=== PATIENT | female | born 1930 | race Caucasian/White ===

== ENCOUNTER 2018-09-24 19:15 | Emergency (ER) | payer MEDICARE, OTHER ==
--- NOTE | 2018-09-24 19:24 | EDM.PDOC ---
ED HPI GENERAL MEDICAL PROBLEM - General Chief Complaint: Head Injury Stated Complaint: FALL Time Seen by Provider: 09/24/18 19:19 Source of Information: Reports: Patient, Family, RN, RN Notes Reviewed History Limitations: Reports: No Limitations - History of Present Illness INITIAL COMMENTS - FREE TEXT/NARRATIVE: Patient is brought to the ED at [facility] for the evaluation of a head injury. The patient states she was walking up cement steps when she lost her balance, falling backward hitting her head on the cement. She denies any LOC. Patient denies any visual field disturbances. She denies any neck or back pain. Patient states she remembers the entire fall. Fall was witnessed by her son. Onset: Today, Sudden Onset Date: 09/24/18 Posterior Head Pain Score (Numeric/FACES): 8 - Related Data Allergies Allergy/AdvReac Type Severity Reaction Status Date / Time acetaminophen Allergy Dizziness Verified 06/04/18 08:42 [From Coricidin] amoxicillin [From Augmentin] Allergy Diarrhea Verified 06/04/18 08:42 chlorpheniramine Allergy Dizziness Verified 06/04/18 08:42 [From Coricidin] clavulanic acid Allergy Diarrhea Verified 06/04/18 08:42 [From Augmentin] phenylpropanolamine Allergy Dizziness Verified 06/04/18 08:42 [From Coricidin] Home Meds: Home Meds Aspirin 325 mg PO DAILY 06/04/18 [History] Calcium Carbonate/Vitamin D3 [Calcium Carbonate/Vitamin D 600 MG-200 Unit] 1 tab PO BID 06/04/18 [History] Docusate Sodium [Colace] 200 mg PO BEDTIME 06/04/18 [History] Enalapril Maleate [Vasotec] 10 mg PO DAILY 06/04/18 [History] Fluticasone Propionate [Flonase] 16 gm NS BID 06/04/18 [History] Levothyroxine 75 mcg PO ACBREAKFAST 06/04/18 [History] Methylcellulose (with Sugar) [Citrucel] 0.3 tbsp PO DAILY 06/04/18 [History] Multivitamin [Multivitamins] 1 each PO DAILY 06/04/18 [History] Raloxifene [Evista] 60 mg PO DAILY 06/04/18 [History] Simvastatin [Zocor] 20 mg PO BEDTIME 06/04/18 [History] hydroCHLOROthiazide [Hydrochlorothiazide] 25 mg PO DAILY 06/04/18 [History] Past Medical History HEENT History: Reports: Cataract Cardiovascular History: Reports: CAD, High Cholesterol, Hypertension Gastrointestinal History: Reports: Chronic Constipation, Diverticulosis Musculoskeletal History: Reports: Osteoporosis Endocrine/Metabolic History: Reports: Hypothyroidism - Past Surgical History GI Surgical History: Reports: Appendectomy ED ROS GENERAL - Review of Systems Review Of Systems: See Below Constitutional: Denies: Fever, Chills HEENT: Denies: Ear Pain, Vision Change Respiratory: Denies: Shortness of Breath, Cough Cardiovascular: Denies: Chest Pain, Palpitations Musculoskeletal: Denies: Neck Pain, Back Pain Skin: Reports: Other (hematoma on posterior occipital scalp) Neurological: Denies: Confusion, Dizziness, Headache ED EXAM, HEAD INJURY - Physical Exam Exam: See Below Exam Limited By: No Limitations General Appearance: Alert, No Apparent Distress Head: Scalp Hematoma (posterior occipital scalp) Nexus Criteria: No: Posterior, Midline Cervical Tenderness, Altered Level of Consciousness, Focal Neurological Deficit Eyes: Bilateral Eye: EOMI, Normal Inspection, PERRL Ears: Normal External Exam, Normal TMs Nose: Normal Inspection Throat/Mouth: Normal Inspection, Normal Oropharynx, No Airway Compromise Neck: Non-Tender, Full Range of Motion, Normal Alignment, Normal Inspection Respiratory: No Respiratory Distress, Lungs Clear, Normal Breath Sounds Cardiovascular: Normal Peripheral Pulses, Regular Rate, Rhythm Back Exam: Normal Inspection, Full Range of Motion Neurologic: Alert, Oriented x 3 Skin: Normal Color, Warm/Dry, Other (Significant posterior occipital scalp hematoma; no bleeding; slight very small abrasion over the hematoma) - [place] Coma Score Best Eye Response (Shaila): (4) Open Spontaneously Best Verbal Response ([place]): (5) Oriented Best Motor Response (Shaila): (6) Obeys Commands Shaila Total: 15 Course - Vital Signs Last Recorded V/S: Last Vital Signs Temp 36.3 C 09/24/18 19:20 Pulse 89 09/24/18 19:20 Resp 20 09/24/18 19:20 BP 207/60 H 09/24/18 19:20 Pulse Ox 95 09/24/18 19:20 - Orders/Labs/Meds Orders: Active Orders 24 hr Category Date Time Status Cervical Spine wo Cont [CT] Stat Exams 09/24/18 19:18 Taken Head wo Cont [CT] Stat Exams 09/24/18 19:18 Taken - Radiology Interpretation Free Text/Narrative:: CT Head: Moderate posterior scalp swelling, no fractures C-Spine: Degenerative spondylosis or fracture See scanned reports in EMR for details CT Results Date: 09/24/18 CT Results Time: 19:54 Departure - Departure Time of Disposition: 20:09 Disposition: Home, Self-Care 01 Condition: Good Clinical Impression: Closed head injury without loss of consciousness Qualifiers: Encounter type: initial encounter Qualified Code(s): S09.90XA - Unspecified injury of head, initial encounter Fall Qualifiers: Encounter type: initial encounter Qualified Code(s): W19.XXXA - Unspecified fall, initial encounter - Discharge Information *PRESCRIPTION DRUG MONITORING PROGRAM REVIEWED*: Not Applicable *COPY OF PRESCRIPTION DRUG MONITORING REPORT IN PATIENT JESUSITA: Not Applicable Instructions: Hematoma, Head Injury, Adult Referrals: Mahesh Mayberry MD [Primary Care Provider] - Forms: ED Department Discharge Additional Instructions: 1. Stay well hydrated and rest 2. Take Tylenol for pain 3. Apply ice to back of head for the next couple days 4. Hematoma will be presents for the next couple weeks 5. See your Primary as symptoms warrant - Problem List Review Problem List Initiated/Reviewed/Updated: Yes - My Orders Last 24 Hours: My Active Orders 09/24/18 19:18 Cervical Spine wo Cont [CT] Stat Head wo Cont [CT] Stat - Assessment/Plan Last 24 Hours: My Active Orders 09/24/18 19:18 Cervical Spine wo Cont [CT] Stat Head wo Cont [CT] Stat Assessment:: Scalp hematoma Fall CHI w/o LOC Plan: CT scans discussed with patient and family. Recommend conservative treatment at this point. Discharge instructions given for head injury and discussed. Recommend follow up with PCP next week as symptoms warrant.
--- NOTE | 2018-09-25 09:28 | CT ---
[id number] CT/CT Head WO IV EXAM: NONCONTRAST HEAD CT INDICATION: Fall with closed head injury. No loss of consciousness. COMPARISON: None. DISCUSSION: Right posterior scalp hematoma. Mild to moderate generalized atrophy. Mild multifocal white matter hypoattenuation is nonspecific, but generally ascribed to chronic small vessel ischemia. No mass effect or midline shift. No acute hemorrhage or extra-axial fluid collection. No acute territorial infarct is identified. A limited look at the orbits and paranasal sinuses is unremarkable. IMPRESSION: 1. No evidence of acute intracranial trauma. Esvin Sylvester MD 09/25/18 0927 Thank you for allowing us to participate in the care of your patient.
--- NOTE | 2018-09-25 09:31 | CT ---
[id number] CT/CT Cervical Spine WO IV EXAM: NONCONTRAST CERVICAL SPINE CT INDICATION: Fall with closed head injury. No loss of consciousness. COMPARISON: None. DISCUSSION: Slight degenerative spondylolisthesis C3-C4, C6-C7 and C7-T1. No fracture or traumatic subluxation is identified. The facets are fused bilaterally at C2-C3. No fracture or suspicious osseous lesion is identified. Mild to moderate degenerative disc disease and facet arthropathy throughout the cervical spine. IMPRESSION: 1. No evidence of acute cervical spine trauma. Esvin Sylvester MD 09/25/18 0931 Thank you for allowing us to participate in the care of your patient.
== END 2018-09-24 20:20 | disposition home or self-care (01) ==
LOC: VM.ED 19:15
DX: S09.90XA Unspecified injury of head, initial encounter (principal); S00.03XA Contusion of scalp, initial encounter; R40.2410 Glasgow coma scale score 13-15, unspecified time; I10 Essential (primary) hypertension; E78.00 Pure hypercholesterolemia, unspecified; I25.10 Atherosclerotic heart disease of native coronary artery without angina pectoris; E03.9 Hypothyroidism, unspecified; Z79.82 Long term (current) use of aspirin; Z79.899 Other long term (current) drug therapy; Z88.6 Allergy status to analgesic agent; Z88.1 Allergy status to other antibiotic agents; Z88.8 Allergy status to other drugs, medicaments and biological substances; W19.XXXA Unspecified fall, initial encounter
CPT/HCPCS: 70450; 72125; 99283-25